=== PATIENT | male | born 1980 | race Caucasian/White ===

== ENCOUNTER 2024-03-23 09:00 | Outpatient (RCR) | payer BC, SELFPAY | END 2024-06-24 09:36 | disposition home or self-care (01) | LOC: HO.OT 09:00 | PROVIDERS: PCP Physician Assistant Medical; Visit Provider Physician Assistant | DX: M79.631 Pain in right forearm (principal) | CPT/HCPCS: 97110; 97140; 97165; 97535 ==

== ENCOUNTER 2025-07-21 13:21 | Outpatient (AMB) | payer BC, SELFPAY ==
--- NOTE | 2025-07-21 13:21 | A.OFFVIS_ITS ---
Intake Visit Reasons: priapism/ED Intake Note: New Patient is present for Erectile Dysfuction , and Priapism Urology Rx:NONE PVR:none Blood Thinners:none Imaging completed: none Rn Intensive Care Unit Required: No Accompanied by: Self / Same As Patient Allergies No Known Allergies Allergy (Verified 07/21/25 13:36) HPI Comments Details: Kj is a pleasant male. 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 Recommendation is to obtain lumbosacral MRI for nerve root irritation. Some patients do respond to combination tuberculin and baclofen Narrative review: pathogenesis, diagnosis, and treatment of sleep-related painful erection A Novel Hypothesis Explaining Sleep-related Painful Erections: Cassius [email or web address] Check baseline testosterone levels We will start with low-dose sildenafil He is looking at reducing SSRI intake PFSH Medical History (Updated 07/21/25 @ 14:01 by Cash Castellon MD) Irritable bowel syndrome Generalized anxiety disorder Alcoholism Abnormal colonoscopy Surgical History (Updated 07/21/25 @ 13:50 by Laina Dewey [facility]) [place] teeth extracted Review of Systems Const Denies chills and Denies fever(s) Card Reports no additional complaints and Denies syncope Resp Denies cough GI Denies abdominal pain and Denies heartburn Reports as per HPI and Denies change in libido Neuro Denies syncope Psych Denies change in libido Endo Denies change in libido Physical Exam Const General: cooperative, healthy appearing, comfortable and no acute distress Orientation/consciousness: patient oriented x3 HEENT Face and sinus: Yes normal facial exam Mouth: moist mucous membranes Neck Neck: Yes normal visual inspection, Yes full ROM and Yes trachea midline Chest Chest palpation & inspection: normal inspection of the chest Resp Effort & Inspection: normal respiratory effort, able to speak in complete sentences and no respiratory distress GI Inspection: Yes normal to inspection Back/Spine/Pelvis Cervical Spine: normal cervical lordosis Thoracic/Lumbar Spine: thoracic and lumbar spine normal to inspection Skin General skin exam: no rashes or lesions noted Neuro General: patient oriented x3, gait normal, tone normal and moves all extremities Extrem General: Yes normal to inspection and Yes capillary refill normal Results AMB Urinalysis, Automated UA Leukoctes 0 Jasbir/uL Last Edit by Laina Dewey [facility] on 07/21/25 13:34 UA Nitrite Negative Last Edit by [facility], [facility] [place] on 07/21/25 13:34 UA Urobilinogen 0.2 mg/dL Last Edit by [facility], [facility] [place] on 07/21/25 13:34 UA Protein 0 mg/dL Last Edit by [facility], [facility] on 07/21/25 13:34 UA pH 7.5 Last Edit by [facility], [facility] on 07/21/25 13:34 UA Blood 0 Segun/uL Last Edit by [facility], [facility] on 07/21/25 13:34 UA Specific [place] 1.010 Last Edit by [facility], [facility] on 07/21/25 13:3 4 UA Ketone Negative Last Edit by [facility], [facility] on 07/21/25 13:34 UA Bilirubin 0 mg/dL Last Edit by [facility], [facility] on 07/21/25 13:34 UA Glucose 0 mg/dL Last Edit by [facility], [facility] on 07/21/25 13:34 Results Reviewed Results Reviewed: Laboratory Last Values Urine pH (Auto) 7.5 07/21/25 13:33 Specific [place] (Auto) 1.010 07/21/25 13:33 Urine Protein (Auto) 0 mg/dL 07/21/25 13:33 Glucose (UA)(Auto) 0 mg/dL 07/21/25 13:33 Urine Ketones (Auto) Negative 07/21/25 13:33 Urine Blood (Auto) 0 Segun/uL 07/21/25 13:33 Urine Nitrite (Auto) Negative 07/21/25 13:33 Urine Bilirubin (Auto) 0 mg/dL 07/21/25 13:33 Urine Urobilinogen (Auto) 0.2 mg/dL 07/21/25 13:33 Leukocyte Esterase (Auto) 0 Jasbir/uL 07/21/25 13:33 Assessment & Plan Assessment & Plan (1) Hypogonadism in male: Code(s): E29.1 - Testicular hypofunction Category: Medical Plan Three-month follow-up Orders: Orders Testosterone, Total Today E29.1 - Testicular hypofunction Lutenizing Hormone Today E29.1 - Testicular hypofunction Follicle Stimulating Hormone Today E29.1 - Testicular hypofunction Estrad Free (Tot Ultra + Free) Today E29.1 - Testicular hypofunction Sex Hormone Binding Globulin Today E29.1 - Testicular hypofunction Medications: New sildenafil administer 60 minutes before intended activity [id number] [facility] [id number] Member [id number] 25 mg PO ONCE PRN 30 tabs 0RF sexual activity 30 days E29.1 - Testicular hypofunction Patient Instructions: This note is constructed using voice recognition software. While every effort has been made to ensure accuracy environmental health manager errors may have been included. Imaging studies, laboratory and physical exam results were discussed and reviewed in detail. No major barriers to patient understanding were identified. An opportunity to ask questions regarding the treatment plan was provided. All questions were answered. The patient expressed understanding and agreement with the above treatment plan. The patient is aware they should contact our office by phone for worsening of their current condition or the appearance of new urologic symptoms. Compliance is encouraged with any medications and followup testing that is ordered. It is a privilege to participate in the urologic care of your patient. If you have any questions or concerns regarding treatment for the above conditions, or other urologic issues, please do not hesitate to contact me. The office telephone contact is [phone]. Sincerely, Dr Cash Castellon MD, AWA [facility] - Urology Compassionate Specialist Care for the Genitourinary System Coding Level of Care Code New Pt Level 4 (08675) Diagnoses Hypogonadism in male E29.1
== END 2025-07-21 14:15 | disposition home or self-care (01) ==
PROVIDERS: Visit Provider Urology
DX: E29.1 Testicular hypofunction (principal)
CPT/HCPCS: 99204